=== PATIENT | female | born 2000 | race Caucasian/White ===

== ENCOUNTER 2023-09-16 06:00 | Inpatient (IN) | payer BC, OTHER ==
[2023-09-16] MEDS ORDERED: TERBUTALINE 1 MG/ML VIAL SQ PRN (06:56)
[2023-09-16] MEDS ORDERED: METHYLERGONOVINE 0.2 MG/ML 1 ML AMP IM PRN (06:56)
[2023-09-16] MEDS ORDERED: TRANEXAMIC 1,000 MG/100ML-NACL 1,000 MG in EMPTY BAG 1 BAG IV PRN (06:56)
[2023-09-16] MEDS ORDERED: OXYTOCIN 10 UNIT/ML 1 ML VIAL IM PRN (06:56)
[2023-09-16] MEDS ORDERED: CARBOPROST TROMETHAMINE 250 MCG/ML 1 ML AMP IM PRN (06:56)
[2023-09-16] MEDS ORDERED: miSOPROStoL 200 MCG TAB PO PRN (06:56)
[2023-09-16] MEDS ORDERED: LIDOCAINE 0.5% (PF) 5 MG/ML (50 ML SDV) SQ PRN (06:56)
[2023-09-16 07:10] LABS: Basophils % (A) 0 %; Eosinophils # (A) 0.1 k/uL (0-0.7); Eosinophils % (A) 1 %; HCT 37.1 % (34.0-46.0); HGB 12.9 gm/dL (11.4-16.0); Lymphocytes # (A) 1.8 k/uL (1.0-4.8); Lymphocytes % (A) 21 %; MCH 30.7 pg (25.0-35.0); MCHC 34.8 g/dL (31.0-37.0); MCV 88.4 fL (80.0-100.0); Mean Platelet Volume 7.9; Monocytes # (A) 0.4 k/uL (0-1.0); Monocytes % (A) 5 %; Neutrophils # (A) 6.1 k/uL (1.3-7.7); Neutrophils % (A) 70 %; Platelet Count 182 k/uL (150-450); RDW 13.1 % (11.5-15.5); WBC 8.6 k/uL (3.8-10.6)
[2023-09-16] MEDS: OXYTOCIN 30 UNITS/500 ML NS 30 UNIT in SALINE 1 500ML.BAG IV SCH ×2 (07:22→19:28)
[2023-09-16] MEDS ORDERED: SODIUM CHLORIDE 0.9% 250 ML BAG ONE (13:13)
[2023-09-16] MEDS ORDERED: ROPIVACAINE 5 MG/ML 30 ML VIAL ONE (13:13)
[2023-09-16] MEDS ORDERED: fentaNYL (PF) 50 MCG/ML 5 ML AMP ONE (13:13)
[2023-09-16] MEDS: LACTATED RINGERS 1,000 ML IV SCH ×2 (14:01→20:25)
[2023-09-16] MEDS ORDERED: LANOLIN CREAM 5 GM TUBE TOPICAL PRN (18:10)
[2023-09-16] MEDS ORDERED: BENZOCAINE/MENTHOL SPRAY 1 GM/SPRAY AEROSOL TOPICAL PRN (18:10)
[2023-09-16] MEDS ORDERED: ZOLPIDEM 5 MG TAB PO PRN (18:10)
[2023-09-16] MEDS ORDERED: diphenhydrAMINE 25 MG CAP PO PRN (18:10)
[2023-09-16] MEDS ORDERED: diphenhydrAMINE 50 MG/ML 1 ML VIAL IVP PRN ×2 (18:10)
[2023-09-16] MEDS ORDERED: HYDROCORTISONE 2.5% RECTAL CREAM 30 GM TUBE RECTAL PRN (18:10)
[2023-09-16] MEDS ORDERED: ACETAMINOPHEN TAB 325 MG TAB PO PRN (18:10)
[2023-09-16] MEDS ORDERED: SIMETHICONE 80 MG CHEWABLE PO PRN (18:10)
[2023-09-16] MEDS ORDERED: diphenhydrAMINE 50 MG CAP PO PRN (18:10)
--- NOTE | 2023-09-16 18:18 | P.HPOB ---
History of Present Illness H&P Date: 09/16/23 Chief Complaint: IUP at 40-5/7 weeks 23-year-old 1 para 0 at 40-5/7 weeks that presents to labor and delivery for induction of labor secondary to postdates. Patient has been receiving routine care with myself which has been essentially uncomplicated. Patient was seen in the office yesterday ultrasound was performed with estimated weight of 9 lbs. 7 oz., 4300 g normal amniotic fluid index was appreciated. Patient was counseled on primary secondary to macrosomia given ultrasound findings. Risk for brachial plexus injury were reviewed in detail including post delivery care with physical therapy of the and possibility of not being able to have full strength within the arm affected. Risks of fourth degree vaginal laceration secondary to delivery of large for gestational age are reviewed in detail. Patient is counseled that sometimes the repair needs to be taken place in the operating room for adequate visualization. Patient states understanding declines and wishes to proceed with induction of labor. Induction of labor was scheduled. Review of Systems Constitutional: Denies chills, Denies fatigue, Denies fever Ears, nose, mouth and throat: Denies headache Cardiovascular: Reports leg edema Respiratory: Denies dyspnea Gastrointestinal: Denies constipation, Denies diarrhea, Denies nausea, Denies vomiting Genitourinary: Reports Past Medical History Past Medical History: No Reported History History of Any Multi-Drug Resistant Organisms: None Reported Past Surgical History: No Surgical Hx Reported Past Anesthesia/Blood Transfusion Reactions: No Reported Reaction Past Psychological History: No Psychological Hx Reported Smoking Status: Never smoker - Past Family History Father Family Medical History: Hyperlipidemia Additional Family Medical History / Comment(s): pt states they have "clogged arteries" Medications and Allergies Home Medications Medication Instructions Recorded Confirmed Type Cholecalciferol (Vitamin D3) 1,250 mcg PO DAILY 09/16/23 09/16/23 History [Vitamin D3] Vit No.179/Iron/Folic 1 tab PO DAILY 09/16/23 09/16/23 History [ Tablet] Allergies Allergy/AdvReac Type Severity Reaction Status Date / Time shellfish derived [Shellfish] AdvReac Anaphylaxis Verified 09/16/23 06:52 Exam Osteopathic Statement: *. No significant issues noted on an osteopathic structural exam other than those noted in the History and Physical/Consult. 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 Results Result Diagrams: 09/16/23 06:50 Assessment and Plan (1) Post-dates Current Visit: Yes Status: Acute Code(s): O48.0 - POST-TERM S NOMED Code(s): 35616136 (2) LGA (large for gestational age) fetus Current Visit: Yes Status: Acute Code(s): TPE5117 - SNOMED Code(s): 570675278 Plan: 23-year-old G3 1 P0 at 40-5/7 weeks presents for induction of labor secondary to postdates. Patient was counseled extensively in the office regarding inserts for size and vaginal delivery. Patient was counseled regarding risks of brachial plexus injury and fourth degree vaginal laceration. Patient stated understanding of these risks and wishes to proceed with vaginal delivery. Patient was admitted to labor and delivery and Pitocin induction of labor was begun per hospital protocol. Amniotomy was performed. Options for pain control are discussed including Stadol, epidural or nitrous. Patient states she desires epidural when appropriate.
--- NOTE | 2023-09-16 18:18 | P.PROBDLV ---
Vaginal Delivery Note - . Vaginal Delivery Note: 23-year-old 1 para 0 at 40-5/7 weeks that presented this morning for induction of labor secondary to postdates and LGA, ultrasound completed in the office revealing estimated weight of 9 lbs. 7 oz. or 4300 g. Patient was offered primary given the large for gestational age for which she declined. Risk of brachial plexus injury shoulder dystocia and vaginal lacerations are discussed patient declined and wished to proceed with induction of labor. Patient was admitted and induction of labor was begun per protocol. Amniotomy was performed and clear fluid was obtained. Patient progressed through labor eventually becoming uncomfortable and requesting epidural placement epidural was placed without difficulty by the anesthesia department. She she did get good relief with the epidural. Patient progressed to complete. Patient did become pushing, with excellent maternal effort patient brought the down to a presentation head was delivered and shoulder dystocia was recognized, and called out. Tete position was performed by attending RNs, suprapubic pressure was applied but no further descent of the shoulder was appreciated The anterior shoulder was noted to be firmly affixed behind the pubic bone. The posterior arm was then delivered followed by the anterior shoulder and body. The umbilical cord was doubly clamped and cut and infant was handed to awaiting RN. Spontaneous cry was noted at the warmer. The placenta was delivered spontaneously intact with a three-vessel cord being noted. A gush of bleeding was appreciated therefore Methergine was given. On inspection the patient's vaginal vault a second-degree vaginal laceration with a stellate pattern into the labia bilaterally was noted this was repaired in the usual fashion with 3-0 Rapide. After closure hemostasis was appreciated. The bladder was drained for approximately 100 mL of clear yellow urine after delivery of the placenta. Uterus was noted to be firm and below the umbilicus. Estimated blood loss 200 mL. Patient and tolerated delivery well and are resting comfortably. Examination at the warmer revealed no clinical suspicion for clavicle fracture, tone appeared normal bilaterally. All counts were correct 2 at the delivery.
[2023-09-16] MEDS: SENNOSIDES-DOCUSATE SODIUM 1 EACH TAB PO SCH (19:24)
[2023-09-16] MEDS: IBUPROFEN 600 MG TAB PO SCH (19:25)
[2023-09-17] MEDS: IBUPROFEN 600 MG TAB PO SCH ×2 (02:17→20:31)
[2023-09-17 07:23] LABS: Basophils % (A) 0 %; Eosinophils # (A) 0.1 k/uL (0-0.7); Eosinophils % (A) 1 %; HCT 30.9 % (34.0-46.0); HGB 10.5 gm/dL (11.4-16.0); Lymphocytes # (A) 1.7 k/uL (1.0-4.8); Lymphocytes % (A) 13 %; MCH 30.1 pg (25.0-35.0); MCV 88.5 fL (80.0-100.0); Monocytes # (A) 0.7 k/uL (0-1.0); Monocytes % (A) 5 %; Neutrophils # (A) 10.6 k/uL (1.3-7.7); Neutrophils % (A) 80 %; Platelet Count 144 k/uL (150-450); RBC 3.49 m/uL (3.80-5.40); RDW 13.1 % (11.5-15.5); WBC 13.3 k/uL (3.8-10.6)
[2023-09-17] MEDS: SENNOSIDES-DOCUSATE SODIUM 1 EACH TAB PO SCH ×2 (08:07→20:31)
[2023-09-17] MEDS: PRENATAL VIT-IRON-FOLIC ACID 1 EACH TABLET PO SCH (08:10)
--- NOTE | 2023-09-17 08:39 | P.PNOBGVD ---
Subjective - Subjective Principal diagnosis: PPPD 1 Interval history: Patient is doing well this am. She is ambulating and voiding without difficulty. Lochia is moderate. pain is well controlled. She denies concerns today Patient reports: Reports appetite normal, Reports voiding normally, Reports pain well controlled, Reports ambulating normally [place]: doing well Objective - Latest Vital Signs Latest vital signs: Vital Signs Temp Pulse Resp BP 09/17/23 00:00 97.8 F 98 16 130/70 09/16/23 19:58 80 16 119/75 09/16/23 19:28 87 16 118/89 09/16/23 18:50 81 16 114/78 09/16/23 18:40 84 16 127/76 09/16/23 18:25 104 H 14 127/88 09/16/23 18:10 87 16 125/83 09/16/23 17:55 98.6 F 92 16 113/59 Intake and Output 09/16/23 09/17/23 09/17/23 22:59 06:59 14:59 Intake Total 12.1 Output Total 379 Balance -366.9 Intake: Intake, IV Titration 12.1 Amount Oxytocin 30 Units/500 ml 12.1 Ns 30 unit In Saline 1 500ml.bag @ Per Protocol IV .Q0M [facility] Rx#:[id number] Output: Estimated Blood Loss 200 Output, Quantitative 179 Blood Loss Other: # Voids 1 1 - Exam Extremities: Present: normal, edema Abdomen: Present: normal appearance, soft Uterus: Present: normal, firm - Labs Labs: Abnormal Lab Results - Last 24 Hours (Table) 09/17/23 Range/Units 06:25 WBC 13.3 H (3.8-10.6) k/uL RBC 3.49 L (3.80-5.40) m/uL Hgb 10.5 L (11.4-16.0) gm/dL Hct 30.9 L (34.0-46.0) % Plt Count 144 L (150-450) k/uL Neutrophils # 10.6 H (1.3-7.7) k/uL Assessment and Plan (1) Post-dates Current Visit: Yes Status: Acute Code(s): O48.0 - POST-TERM SNOMED Code(s): 51231064 (2) LGA (large for gestational age) fetus Current Visit: Yes Status: Acute Code(s): HHJ5631 - SNOMED Code(s): 096121711 (3) Status post vaginal delivery Current Visit: Yes Status: Acute Code(s): GJO4549 - SNOMED Code(s): 018019124 (4) Obstetrical laceration, second degree Current Visit: Yes Status: Acute Code(s): O70.1 - SECOND DEGREE PERINEAL LACERATION DURING DELIVERY SNOMED Code(s): 9062983 (5) Shoulder dystocia during labor and delivery Current Visit: Yes Status: Acute Code(s): O66.0 - OBSTRUCTED LABOR DUE TO SHOULDER DYSTOCIA SNOMED Code(s): 48718560 Plan: 23 you G1 now P1 s/p with shoulder dystocia, delivery of the posterior arm. She is doing well without concerns Will continue with routine PP care and plan discharge home tomorrow. is doing well with full movement of b/l arms. Peds to evaluate baby today
[2023-09-18] MEDS: IBUPROFEN 600 MG TAB PO SCH ×3 (05:10→05:12)
--- NOTE | 2023-09-18 08:45 | P.DS ---
Providers Date of admission: 09/16/23 06:08 Expected date of discharge: 09/18/23 Attending physician: Crystal Shirley Primary care physician: Stated None - Discharge Diagnosis(es) (1) Post-dates Current Visit: Yes Status: Acute (2) LGA (large for gestational age) fetus Current Visit: Yes Status: Acute (3) Status post vaginal delivery Current Visit: Yes Status: Acute (4) Obstetrical laceration, second degree Current Visit: Yes Status: Acute (5) Shoulder dystocia during labor and delivery Current Visit: Yes Status: Acute Hospital Course: 3-year-old 1 now para 1 that presented to labor and delivery 09/16 for scheduled induction of labor secondary to postdates and large for gestational age. Patient been receiving routine care with myself voided been essentially uncomplicated. The day prior to induction of labor patient had an ultrasound revealing a 4300 g 9 lbs. 7 oz. Patient was counseled on risks of large for gestational age including shoulder dystocia brachial plexus injury and significant vaginal laceration including fourth degree. Patient stated understanding multiple questions were answered possibilities of long-term deficit in the infant were discussed at length with her and her significant other/father the baby. They both stated understanding but wished for induction of labor versus primary . Primary was recommended once again to which they state they wanted to proceed with induction of labor. Patient was admitted to labor and delivery and Pitocin induction of labor was begun. Amniotomy was performed and clear fluid was obtained. Patient progressed through labor eventually becoming uncomfortable requesting epidural placement. Epidural was placed without difficulty by the anesthesia department. Tachysystole was noted and Pitocin was turned off and contractions continued to be regular with good cervical change. Patient progressed to complete began pushing and brought the down to presentation. has was delivered in shoulder dystocia was identified. 2 nurses were in the room suprapubic pressure after Tete maneuver failed was performed. Posterior shoulder was delivered followed by the body. Umbilical cord was doubly clamped and infant was handed off to RN for evaluation at the warmer. Spontaneous cry was noted at the warmer. Total time of shoulder dystocia was proximally 2 minutes from delivery of the head to deliver the posterior arm and . Patient did sustain a second-degree midline laceration with stellate pattern bilaterally. This was repaired with 3-0 Rapide without difficulty. Patient's post course has been uneventful. On this day #2 she is ambulating and voiding without difficulty. She is tolerating a regular diet without nausea or vomiting. She states her pain is well-controlled. She said pediatrics did evaluate the baby and no deficit was appreciated we'll continue to follow with outpatient pediatrics. Once again post care of is reviewed and possibility of deficit is discussed. Patient states understanding. Did discuss we will discuss delivery in detail at her appointment in 6 weeks. Patient Condition at Discharge: Good Plan - Discharge Summary Discharge Rx Participant: Yes New Discharge Prescriptions: No Action Vit No.179/Iron/Folic [ Tablet] 1 tab PO DAILY Cholecalciferol (Vitamin D3) [Vitamin D3] 1,250 mcg PO DAILY Discharge Medication List Cholecalciferol (Vitamin D3) [Vitamin D3] 1,250 mcg PO DAILY 09/16/23 [History] Vit No.179/Iron/Folic [ Tablet] 1 tab PO DAILY 09/16/23 [History] Follow up Appointment(s)/Referral(s): Crystal Shirley DO [Doctor of Osteopathic Medicine] - 6 Weeks Patient Instructions/Handouts: Vaginal Delivery (DC), Vaginal Delivery (GEN) Activity/Diet/Wound Care/Special Instructions: bleeding is discussed with patient. [id number] ibuprofen 600 mg or 3 tablets every 6 hours as needed for pain. Patient is to call the office for routine visit for 6 weeks. Should she have any concerns prior to this point she is urged to call the office. Discharge Disposition: HOME SELF-CARE
[2023-09-18 09:18] VITALS: BP 115/69; PULSE 96; RESP 16; TEMP 98
[2023-09-18] MEDS: SENNOSIDES-DOCUSATE SODIUM 1 EACH TAB PO SCH (09:20)
[2023-09-18] MEDS: PRENATAL VIT-IRON-FOLIC ACID 1 EACH TABLET PO SCH (09:25)
== END 2023-09-18 12:48 | disposition home or self-care (01) | DRG 807 ==
LOC: 4FBP 06:08
PROVIDERS: ADMIT Obstetrics & Gynecology Obstetrics; ATTEND Obstetrics & Gynecology Obstetrics
PROC: 10E0XZZ Delivery of Products of Conception, External Approach (ICD-10-PCS; principal; 2023-09-16)
PROC: 0KQM0ZZ Repair Perineum Muscle, Open Approach (ICD-10-PCS; 2023-09-16)
PROC: 10907ZC Drainage of Amniotic Fluid, Therapeutic from Products of Conception, Via Natural or Artificial Opening (ICD-10-PCS; 2023-09-16)
PROC: 3E033VJ Introduction of Other Hormone into Peripheral Vein, Percutaneous Approach (ICD-10-PCS; 2023-09-16)
DX: O36.63X0 Maternal care for excessive fetal growth, third trimester, not applicable or unspecified (principal); Z37.0 Single live birth; O66.0 Obstructed labor due to shoulder dystocia; O48.0 Post-term pregnancy; O70.1 Second degree perineal laceration during delivery; Z3A.40 40 weeks gestation of pregnancy; Z91.013 Allergy to seafood
CPT/HCPCS: 85025; 86850; 86900; 86901; 88307